=== PATIENT | female | born 1985 | race Caucasian/White ===

== ENCOUNTER 2017-06-13 19:08 | Emergency (ER) | payer BC, SELFPAY ==
[2017-06-13 19:50] LABS: #Lymphocytes 1.1 thou/uL (1.20-3.40); #Monocytes 0.5 thou/uL (0.11-0.59); #Neutrophils 4.4 thou/uL (1.40-6.50); %Basophils 0.3 % (0.0-1.0); %Eosinophils 0.3 % (0.0-10.0); %Monocytes 7.7 % (0.0-10.0); %Neutrophils 73.6 % (42.0-75.0); Hemoglobin 12.5 g/dL (12.0-16.0); Mean Corpuscular HGB CONC 33.7 g/dL (32.0-36.0); Mean Corpuscular Hemoglobin 29.6 pg (27.0-31.0); Mean Corpuscular Volume 87.8 fl (81.0-99.0); Mean Platelet Volume 8.6 fL (7.4-10.4); Platelet Count 132 thou/uL (130-400); RBC Distribution Width 11.2 % (11.5-14.5); Red Blood Cell (RBC) Count 4.23 mill/uL (4.20-5.40)
[2017-06-13] MEDS ORDERED: Ibuprofen 800 MG TAB ONE (19:57)
[2017-06-13 20:05] LABS: ALT (SGPT) 35 U/L (8-55); AST (SGOT) 36 U/L (5-34); Albumin 3.6 g/dL (3.5-5.0); Alkaline Phosphatase 54 U/L (40-150); Anion Gap 15 mmol/L (10-20); BUN (Urea Nitrogen) 17 mg/dL (7.0-18.7); Bilirubin, Total 0.6 mg/dL (0.2-1.2); Calc. Creatinine Clearance 0 mL/min (70-130); Calcium 8.5 mg/dL (7.8-10.44); Carbon Dioxide 18 mmol/L (22-29); Chloride 110 mmol/L (98-107); Estimated GFR-MDRD 84; Globulin 3.8 g/dL (2.4-3.5); Glucose 98 mg/dL (70-105); Potassium 3.4 mmol/L (3.5-5.1); Protein, Total 7.4 g/dL (6.0-8.3); Sodium 140 mmol/L (136-145)
[2017-06-13 20:35] LABS: Blood, Urine Trace (Negative); Clarity Cloudy (Clear); Glucose, Urine (Dipstick) Negative (Negative); Leukocyte Trace (Negative); Nitrite Negative (Negative); Protein, Urine (Dipstick) > or equal to 300 mg/dL (Neg-Trace); pH, Urine 5.5 (5.0-9.0)
[2017-06-13 20:37] LABS: Bilirubin Negative (Negative); Specific Gravity, Urine 1.049 (1.002-1.036)
[2017-06-13] MEDS ORDERED: Lorazepam 0.5 MG TAB ONE (20:40)
[2017-06-13 20:42] LABS: Bacteria/HPF 2+ HPF (None Seen); Hyaline Casts/LPF 4-6 HYALINE CAST LPF (0-3 Hyaline); Other Microscopic Description 1+ MUCUS; RBC/HPF 0-3 HPF (0-3)
== END 2017-06-13 20:45 | disposition home or self-care (01) ==
LOC: BURERS 19:08
DX: M25.50 Pain in unspecified joint (principal)
CPT/HCPCS: 80053; 81003; 81015; 85025; 86140; 86430; 87086; 99283

== ENCOUNTER 2017-09-07 01:01 | Emergency (ER) | payer SELFPAY | END 2017-09-07 01:30 | disposition home or self-care (01) | LOC: BURERS 01:01 | DX: J02.9 Acute pharyngitis, unspecified (principal) | CPT/HCPCS: 99283 ==

== ENCOUNTER 2017-09-07 03:43 | Emergency (ER) | payer SELFPAY ==
[2017-09-07] MEDS ORDERED: EPINEPHrine 1 mg/ml MDV (1ml Charge) ONE (04:02)
[2017-09-07] MEDS ORDERED: diphenhydrAMINE 50 MG/ML VIAL ONE (04:10)
[2017-09-07] MEDS ORDERED: Famotidine In NaCl 20 mg/50 ml Premix Bag ONE (04:33)
[2017-09-07] MEDS ORDERED: methylPREDNISolone Sod Succ/PF 125 MG/2 ML VIAL ONE (04:33)
== END 2017-09-07 06:13 | disposition home or self-care (01) ==
LOC: BURERS 03:43
DX: S09.93XA Unspecified injury of face, initial encounter (principal); J02.9 Acute pharyngitis, unspecified; X58.XXXA Exposure to other specified factors, initial encounter
CPT/HCPCS: 96365; 96372; 96375; J0171; J1200; J2930